=== PATIENT | female | born 1995 | race Caucasian/White ===

== ENCOUNTER 2018-02-13 19:36 | Emergency (ER) | payer SELFPAY ==
--- NOTE | 2018-02-13 23:21 | ED ---
Laceration/Wound HPI - HPI Summary HPI Summary: 22 female presents ED with complaints of laceration to left hand. This happened just prior to arrival on a piece of broken glass. Tetanus is up-to- date. Bleeding is well-controlled. No concerns of glass or foreign body in the wound. Is right-hand dominant. Has no loss of range of motion or pain. No medications. No past medical history. No other complaints at this time - History of Current Complaint Stated Complaint: LT HAND LAC Time Seen by Provider: 02/13/18 21:06 Hx Obtained From: Patient Mechanism of Injury: Sharp/Blunt Trauma - Glass Onset/Duration: Sudden Onset Alleviating: Compression Timing: Constant Onset Severity: Mild Current Severity: None Pain Intensity: 0 Pain Scale Used: 0-10 Numeric Associated Signs & Symptoms: Negative Related Hx: Dominant Hand (Right) - Allergy/Home Medications Allergies/Adverse Reactions: Allergies Allergy/AdvReac Type Severity Reaction Status Date / Time No Known Allergies Allergy Verified 02/13/18 19:52 PMH/Surg Hx/FS Hx/Imm Hx Endocrine/Hematology History: Denies: Hx Anticoagulant Therapy, Hx Diabetes Cardiovascular History: Denies: Hx Hypertension Respiratory History: Denies: Hx Asthma - Surgical History Surgery Procedure, Year, and Place: None - Immunization History Date of Tetanus Vaccine: up-to-date Immunizations Up to Date: Yes Infectious Disease History: No Infectious Disease History: Denies: Traveled Outside the [place] in Last 30 Days - Family History Known Family History: Positive: None - Social History Alcohol Use: Occasionally Substance Use Type: Reports: None Smoking Status (MU): Never Smoked Tobacco Review of Systems Constitutional: Negative Cardiovascular: Negative Respiratory: Negative Positive: Other - laceration All Other Systems Reviewed And Are Negative: Yes Physical Exam Triage Information Reviewed: Yes Vital Signs On Initial Exam: Initial Vitals Temp Pulse Resp BP Pulse Ox 99 F 76 18 138/92 98 02/13/18 19:44 02/13/18 19:44 02/13/18 19:44 02/13/18 19:44 02/13/18 19:44 Vital Signs Reviewed: Yes Appearance: Positive: Well-Appearing, No Pain Distress, Well-Nourished Skin: Positive: Warm, Skin Color Reflects Adequate Perfusion, Dry, Other - 2 cm linear laceration over the dorsal left hand bleeding well-controlled no foreign body. Negative: Cold, Numb, Cyanosis @, Pale, Erythema @ Head/Face: Positive: Normal Head/Face Inspection Neck: Positive: Supple Respiratory/Lung Sounds: Positive: Clear to Auscultation, Breath Sounds Present. Negative: Rales, Rhonchi, Wheezes Cardiovascular: Positive: Normal, RRR, Pulses are Symmetrical in both Upper and Lower Extremities - 2+. Negative: Murmur, Rub Musculoskeletal: Positive: Normal, Strength/ROM Intact. Negative: Limited @, Interruption @, Abnormal @, Pain @, Edema Left, Edema Right Neurological: Positive: Normal, Sensory/Motor Intact, Alert, Oriented to Person Place, Time Procedures - Laceration/Wound Repair 1 Location: upper extremity - hand left Description: Linear Length, Depth and Shape: 2 cm linear laceration left dorsum hand superficial dermis Irrigated w/ Saline (ccs): 100 Laceration/Wound Explored: clean Closure: Skin Adhesive, SteriStrips - 2 Sterile Dressing Applied?: Yes - Telfa and Curlex Coban Diagnostics - Vital Signs Vital Signs Temp Pulse Resp BP Pulse Ox 02/13/18 19:44 99 F 76 18 138/92 98 - Laboratory Lab Statement: Any lab studies that have been ordered have been reviewed, and results considered in the medical decision making process. Laceration Repair Course/Dx - Course Course Of Treatment: Laceration was repaired using skin adhesive without complication. Patient tolerated procedure well. 2 Steri-Strips were also placed over laceration. Laceration was dressed. Tetanus is up-to-date. Do not get wet for 24-48 hours. Keep clean and dry. Apply triple antibiotic ointment on day 3. Patient is aware of or worsening signs and symptoms to watch out for. Follow-up with PCP. Do not pick at clue or Steri-Strips. No other concerns at this time. - Differential Dx Differental Diagnoses: Laceration - Clinical Impression Provider Diagnoses: Laceration Discharge - Sign-Out/Discharge Documenting (check all that apply): Discharge - Discharge Plan Condition: Good Disposition: HOME Patient Education Materials: Laceration (ED), Skin Adhesive Care (ED) Referrals: [facility] [Outside] Additional Instructions: Do not get hand wet for 24-48 hours. do not pick at group like glue fall off on its own. Do not pick at the Steri-Strips want them fall off on their own. Keep wound clean and dry. Apply triple antibiotic ointment on it after day 3. You may dress after if you feel necessary. Any new or worsening symptoms such as infection please seek medical attention. Follow up with PCP. - Billing Disposition and Condition Condition: GOOD Disposition: HOME
[2018-02-14 00:05] VITALS: BP 118/70
== END 2018-02-14 00:03 | disposition home or self-care (01) ==
LOC: ED 19:36
DX: S61.412A Laceration without foreign body of left hand, initial encounter (principal); W25.XXXA Contact with sharp glass, initial encounter; Y93.9 Activity, unspecified; Y92.9 Unspecified place or not applicable
CPT/HCPCS: 12001; 99281